=== PATIENT | female | born 1995 | race African-American/Black ===

== ENCOUNTER → 2020-08-05 | Outpatient (CLI) | payer BC, MEDICAID, SELFPAY | END | disposition home or self-care (01) | LOC: LABSPEC 17:11 | PROVIDERS: PCP Pediatrics; Referring Provider Advanced Practice Midwife; Visit Provider Advanced Practice Midwife | DX: Z03.818 Encounter for observation for suspected exposure to other biological agents ruled out (principal) | CPT/HCPCS: 87635; C9803; U0003 ==

== ENCOUNTER 2020-08-06 03:00 | Inpatient (IN) | payer BC, MEDICAID, SELFPAY ==
[2020-08-06] VITALS (48 sets, daily range): BP systolic 109–161; BP diastolic 55–98; PULSE 65–107; RESP 14–16; TEMP 36.6–37.3; O2SAT 98–100; BMI 37.3
[2020-08-06 02:56] LABS: ROM Internal Control Test YES-OK TO RESULT pt. (Internal QC); ROM Patient Test POSITIVE (Negative)
[2020-08-06] MEDS: Lactated Ringers 1,000 ML 50 ML IV (03:10)
[2020-08-06 03:50] LABS: Absolute Neutrophil Count 5.5 X10^3/uL (2.0-7.7); Basophil# 0.01 X10^3/uL; Basophil% 0.1 % (0-1); Eosinophil# 0.02 X10^3/uL; Eosinophils% 0.2 % (0-5); Hematocrit 33.5 % (37-47); Hemoglobin 10.8 g/dL (12.0-15.0); Mean Corp Hgb Conc 32.2 g/dL (32-36); Mean Corpuscular Hgb 28.6 pg (27.0-32.0); Mean Corpuscular Volume 88.9 fL (81-99); Mean Platelet Vol. 13.5 fl (6.2-12.0); Monocyte# 0.88 X10^3/uL; Monocyte% 10.7 % (0-10); NRBC Flagged by Analyzer 0 % (0-5); Neutrophil # 5.45 X10^3/uL (2.7-7.7); Neutrophil % 66.6 % (47-70); POSITIVE MORPHOLOGY YES; Platelet Count 152 K/mm3 (150-450); RBC Distribution Width CV 12.9 % (11.6-14.6); RBC Distribution Width SD 41.9 fl (35.1-43.9); Red Blood Count 3.77 M/mm3 (4.2-5.4); White Blood Count 8.2 K/mm3 (4.4-11.0)
[2020-08-06 04:02] LABS: AST(SGOT) 32 U/L (15-37); Alanine Aminotransfer ALT/SGPT 19 U/L (13-56); Creatinine, Serum 0.56 mg/dL (0.55-1.02); EST Glomerular Filtration Rate 143 mL/min (>60); Est Glom Filt Rate - Afr Amer 173 mL/min (>60); Estimated Creatinine Clearance 128.14 ml/min; Uric Acid 3.9 mg/dL (2.6-6.0)
[2020-08-06 04:05] LABS: Differential Indicated SCAN CRITERIA MET
[2020-08-06 04:06] LABS: Differential Comment SCANNED
[2020-08-06 04:58] LABS: Protein, Urine (Random) 7.4 mg/dL (<11.9); Protein:Creat Ratio 144 mg/g CRE (0-200)
[2020-08-06] MEDS: Lactated Ringers 500 ML 999 ML IV ×2 (05:12→13:22)
[2020-08-06] MEDS: fentaNYL-bupivacaine (epidural) 100 ML BAG EPIDURAL ×2 (06:27→11:23)
[2020-08-06] MEDS: Ondansetron 4 MG/2 ML Vial IV (06:37)
[2020-08-06] MEDS: Mag Hydrox/Al Hydrox/Simeth 30 ML UDC PO (07:27)
[2020-08-06] MEDS: Lactated Ringers 1,000 ML 200 ML IV (07:51)
--- NOTE | 2020-08-06 08:20 | PCM.HP.OB ---
- Problem List (1) 40 weeks gestation of Status: Acute (2) Primiparous Status: Acute (3) Uterine contractions Status: Acute (4) Positive GBS test Status: Acute (5) History of depression Status: Acute History Date of Admission: 08/06/20 Final HERBERT: 08/04/20 Gestational age: 40 Weeks and 2 Days History of this : This is a 25 year-old, G 1, P 0, at 40 weeks gestational age who presented with ctx's after membrane sweep. Allergies latex Allergy (Verified 08/06/20 04:04) Itching Home Medications: Home Medications Polyethylene Glycol 3350 [Miralax] 17 gm PO DAILY 08/06/20 Smoking Status: Former smoker Number of Fetus(es): 1 NST - FHR Rate Baby A FHR Category:: Category II Uterine Activity:: ctx q 4 min History Past Pregnancies: Past Pregnancies Delivery Date Name GA/ Weeks Outcome Route Wt Infant Sex Labor Length Anesthesia Delivery Location Provider FOB Expected Delivery Method: Spontaneous Vaginal Physical Exam Vitals: Vital Signs Temp Pulse BP Pulse Ox 98.1 F 70 128/74 H 100 08/06/20 07:19 08/06/20 07:50 08/06/20 07:50 08/06/20 07:19 General: No apparent distress Abdomen: Gravid Extremities:: No edema Neurological: Neuro grossly intact Estimated gestational size: Appropriate for gestational size Presentation: Cephalic Assessment/Plan All Active Problems 40 weeks gestation of (Acute) Primiparous (Acute) Uterine contractions (Acute) Positive GBS test (Acute) History of depression (Acute) Constipation (Acute) This is a 25 year-old, G 1, P 0, at 40 weeks gestational age who presents at 3-4 cm dilated with ctx's after membrane sweep. - Admit for routine intrapartum care - PCN for GBS positive - ROM plus positive - Epidural prn - EFW expected to be < 4500 g and pelvis adequate. Anticipate vaginal delivery
[2020-08-06] MEDS: DiphenhydrAMINE 25 MG Capsule PO (10:33)
[2020-08-06] MEDS: Oxytocin 30 units/NS 500 ml 30 UNITS/500 ML IV.SOLN 334 UNITS IV (13:31)
--- NOTE | 2020-08-06 13:50 | PCM.OPRPT ---
Problem List (1) 40 weeks gestation of Status: Acute (2) Primiparous Status: Acute (3) Uterine contractions Status: Acute (4) Positive GBS test Status: Acute (5) History of depression Status: Acute Report of Operation Date of Procedure: 08/06/20 Pre-Operative Diagnosis: 40 week gestation, labor at term, GBS positive status, primiparous Post-Operative Diagnosis: As above Surgery/Procedure Performed:: Type of Anesthesia:: Epidural Special Medications: None Specimen's removed: Placenta Drains: Palafox Estimated Blood Loss (mL): 500 Description of Procedure: The patient was complete and pushing. The head of the infant was delivered in occiput anterior position. The anterior shoulder, followed by the posterior shoulder, followed by the body were delivered without any force or delay. A viable female was delivered atraumatically and placed on the maternal abdomen. The cord was clamped and cut after a 60 sec delay by the father of the baby. Cord blood was obtained. Placenta was delivered with fundal massage. The placenta was noted to be normal-appearing and intact with a three-vessel cord. The uterus was explored. Fundus firm and bleeding hemostatic. A rectal exam was performed and a second-degree laceration was noted. The laceration was repaired with 3-0 Vicryl in usual fashion. Instrument, sponge, needle counts were correct. Vaginal sweep was performed. Grafts/Implants Used: None - Complications None - Admit VTE Documentation VTE Present on Admission: No VTE Mechan Device Prophylaxis: None VTE Pharm Prophylaxis ordered?: No Vaginal Delivery Maternal Presentation: Active Labor Amniotic Membrane Rupture Type: Spontaneous Amniotic Fluid Description: Clear Surgery/ Procedure Performed: Spontaneous Vaginal Delivery Type of Anesthesia: Epidural Presentation: Vertex Placental Delivery Description: Expressed Cord Vessel Description: 3 Vessels Cord Entanglement: None Drain: Palafox to straight drain Estimated Blood Loss: 500 A gender: Female (1 minute): 8 (5 minute): 9 Episiotomy Description: None Laceration: 2nd degree Medications given after delivery: IV Pitocin Complications: None
[2020-08-06] MEDS: Ibuprofen 600 MG Tablet PO (18:31)
--- NOTE | 2020-08-06 19:49 | CASEMGMT ---
Social Work Assessment Labor and Delivery Unit Date of Referral: 08/06/2020 Time of Referral: 16:45 Referred By: Dr. Elaine Galvez Date of Intervention: 08/06/2020 Time of Intervention: 19:49 Reason for Referral: Mother of baby (MOB) with history of depression. History obtained from: MOB, Chart, Nursing staff. Household composition: MOB, Father of baby (FOB), Mark Saleem and now this infant, Haley Saleem have private home together. Patient's parent/guardian status: MOB and FOB have been together for 5 years. was not planned but accepted. This is first infant for both MOB and FOB. Medical History: MOB with history prior to delivery of this infant. MOB with spontaneous vaginal delivery at 40 weeks. MOB with history of Depression. born on 08/06/2019 with apgars of 8 and 9 at 1min and 9min. Infant weight of 3160g. MOB with appropriate care visits. MOB plans to breast feed infant. Educational Status: MOB denies any issues with comprehension or understanding. Financial Status: MOB denies any financial concerns. MOB active with [facility]. FOB works full-time and has a ?few days off work.? MOB was working full-time at [employer] but is now PRN. Infant Supplies: MOB reports to have needed supplies including car seat and crib etc. Childcare/Caregiver(s): MOB plans to be primary caregiver for . MOB reports to have family for support of childcare if MOB is working or needs to leave infant. Transportation: Denies issues. Programs/Agencies Involved: MOB plans to utilize [place] and reports to have services already set up. Children Services/Legal Issues: Denies. Mental Health History: MOB with history of depression. MOB denies any current medication management or history of. MOB denies history of counseling services or active counseling services. MOB reports to be able to self-manage depression. This social security assessor able to facilitate conversation with MOB about signs and symptoms of depression and anxiety. MOB denies suicidal thoughts, plans, intents or history of. Substance Use History: MOB denies. Maternal and Drug Screens: None completed. PHQ9: Did not trigger. Family/Social Stressors: Denies any family or social stressors currently. Support Systems: Reports positive support from family. Depression and Anxiety/Shaken Baby/Safe Sleeping: MOB provided with resources for depression, anxiety, shaken baby, safe sleeping, and community resources local to [facility]. MOB and FOB able to responds appropriately to safe sleeping and shaken baby prompts. ASSESSMENT: This social security assessor met with MOB, FOB and in room. Introduced self and social security assessor role. MOB agreeable to speak with this social security assessor. MOB provided verbal permission for this social security assessor to speak openly with FOB present. FOB holding during interaction. FOB gazing at often. MOB reports to have a connection with . MOB smiling often when speaking about . MOB denies any concerns on returning to home. MOB reports that has been going well. Active support and listening provided. PLAN: to discharge to home with MOB and FOB. No other services requested or indicated. Abraham JACOB, SHAKEEL
[2020-08-07 00:07] VITALS: BP 128/78; PULSE 78; RESP 16; TEMP 36.8
[2020-08-07 04:35] VITALS: BP 119/70; PULSE 85; RESP 16; TEMP 36.4
[2020-08-07] MEDS: Ibuprofen 600 MG Tablet PO (08:23)
[2020-08-07] MEDS: Senna/Docusate Sodium 1 Tablet PO (08:23)
[2020-08-07 08:52] VITALS: BP 123/60; PULSE 83; RESP 16; TEMP 36.2
--- NOTE | 2020-08-07 10:06 | PCM.PN.OB ---
Patient Problems: Active and Suspected Problems 40 weeks gestation of (Acute) Primiparous (Acute) Uterine contractions (Acute) Positive GBS test (Acute) History of depression (Acute) Subjective: Patient is doing well. She feels ready to go home today and desires discharge. She is ambulating and voiding without difficulty. She is tolerating a regular diet without nausea or vomiting. Lochia normal. She is breast-feeding without complaints. She denies lightheadedness, dizziness, chest pain, shortness of breath, leg pain. No headaches, vision changes, upper abdominal pain. - Physical Exam Vitals/I&O's: Vital Signs Temp Pulse Resp BP Pulse Ox 97.2 F L 83 16 123/60 H 98 08/07/20 08:52 08/07/20 08:52 08/07/20 08:52 08/07/20 08:52 08/06/20 17:35 Oxygen Delivery Method Room Air Weight: 210 lb 8.663 oz Body Mass Index (BMI) 37.3 Intake and Output for Last 24 Hours 08/05/20 08/06/20 08/07/20 23:59 23:59 23:59 Intake Total 3249.35 / 3249.35 Output Total 1800 / 1800 Balance 1449.35 / 1449.35 General: Alert, No apparent distress HEENT: Atraumatic Abdomen: Soft, Non-Distended Extremities: No edema Skin: No rashes Neurological: Neuro grossly intact Psych/Mental Status: Normal Affect, Appropriate Current Medications Acetaminophen (Acetaminophen 500 Mg Tablet) 1,000 mg PO Q8H PRN PRN PRN Reason: Pain Score 1-10 Bisacodyl (Bisacodyl 10 Mg Suppository) 10 mg RECTAL UD PRN PRN Reason: If no BM Dibucaine (Dibucaine 30 Gm Tube) 1 applic TOPICAL TID PRN PRN; Protocol PRN Reason: Discomfort Hydrocortisone (Hydrocortisone 2.5% Crm) 1 applic TOPICAL TID PRN PRN; Protocol PRN Reason: Discomfort Ibuprofen (Ibuprofen 600 Mg Tablet) 600 mg PO Q6H PRN PRN PRN Reason: Pain Score 1-10 Last Admin: 08/07/20 08:23 Dose: 600 mg Documented by: Methylergonovine Maleate (Methylergonovine 0.2 Mg/Ml Ampul) 0.2 mg IM X1 PRN PRN Reason: Excess bleeding/uterine atony Ondansetron HCl (Ondansetron 4 Mg/2 Ml Vial) 4 mg IV Q4H PRN PRN PRN Reason: Nausea Senna/Docusate Sodium (Senna/Docusate Sodium 1 Tablet) 1 - 2 tablet PO DAILY PRN PRN PRN Reason: Constipation Last Admin: 08/07/20 08:23 Dose: 2 tablet Documented by: Simethicone (Simethicone 80 Mg Tablet) 80 mg PO PCHS PRN PRN Reason: Indigestion/Stomach pain Sodium Chloride (0.9% Saline Lock 10 Ml Syringe) 5 - 15 ml IV UD PRN PRN Reason: SALINE FLUSH Medical Necessity - Tobacco Use Smoking Status: Former smoker Assessment/Plan All Active Problems 40 weeks gestation of (Acute) Primiparous (Acute) Uterine contractions (Acute) Positive GBS test (Acute) History of depression (Acute) Constipation (Acute) day 1 from a vaginal delivery. She is doing well. Vital signs are within normal limits. She desires discharge and is meeting all milestones to go home. Discussed with patient elevated blood pressures on admission, and normal preeclampsia labs. Blood pressures since then have been normal and she has no preeclampsia symptoms. Discussed with her symptoms of preeclampsia, and when to call when she goes home. Reviewed discharge instructions. To follow-up in the office in 1 to 2 weeks.
--- NOTE | 2020-08-07 10:11 | DCINST_ITS ---
Discharge Diet: No Restrictions Discharge Activity: May Shower, May Take a Tub Bath May resume sexual activity in: 6 weeks Ice area for (Minutes): 15 Weight Bearing Status: Weight bearing as tolerated Lifting Restrictions: Nothing heavier than baby for 2 weeks Call your doctor if you observe: Fever of 101 or Higher, Inability to urinate, Inability to have a bowel movement, Using more than one pad per hour, Shortness of breath, Dizziness, Fainting spells, Swelling in the ankles, Chest pain, Increased palpitations (irregular heartbeat), Calf discomfort, Uncontrolled pain, - - Persistent headache, vision changes, persistent upper abdominal pain Cleanse incision/area with: Soap & Water Additional Instructions: If you experience any of the following, contact your healthcare provider. * Bleeding that soaks a pad every hour for 2 hours * Fever 100.4 or higher * Unrelieved incision or abdominal pain * Swelling, redness, discharge or bleeding from your incision or episiotomy site * Your incision begins to separate * Problems urinating (including inability to urinate or burning while urinating). * Visual changes * Severe headache * Flu-like symptoms * Pain or redness in one of both of your breasts * Pain, warmth, tenderness or swelling in your legs, especially the calf area * Frequent nausea and vomiting * Symptoms of depression or anxiety If you experience any of the following, call 911 or go to the nearest Emergency Room. * Chest pain * Problems breathing * Seizure activity * Partial or complete paralysis of a body part, slurred speech, weakness or drooping of the face, or a sudden inability to walk or hold your balance Allergies/Adverse Reactions: Allergies latex Allergy (Verified 08/06/20 04:04) Itching Medications to take at Discharge Polyethylene Glycol 3350 [Miralax] 17 gm PO DAILY 08/06/20 Acetaminophen [Tylenol] 1,000 mg PO Q8H PRN PRN tab 08/07/20 Ibuprofen [Motrin] 600 mg PO Q6H PRN PRN tab 08/07/20 Ibuprofen [Motrin] 600 mg PO Q6H PRN PRN #30 tab 08/07/20 The following prescriptions were given: Ibuprofen [Motrin] 600 mg PO Q6H PRN PRN #30 tab PRN Reason: Pain Score 6-10 Transmission Status: Pending to [facility]/pharmacy #[id number] When: 1-2 weeks for virtual visit. 6 weeks for visit Primary Care Physician: Yumiko Acosta MD [Primary Care Provider] - Test Results: Test results from this visit will be discussed in further detail at your follow- up appointment, if applicable.
[2020-08-07 12:47] VITALS: BP 120/69; PULSE 75; RESP 16; TEMP 36.3
== END 2020-08-07 14:55 | disposition home or self-care (01) | DRG 807 ==
LOC: WPOUT 03:03 → WP 03:15
PROVIDERS: Admitting Provider Obstetrics & Gynecology; PCP Pediatrics; Visit Provider Obstetrics & Gynecology
DX: O99.824 Streptococcus B carrier state complicating childbirth (principal); Z37.0 Single live birth; Z3A.40 40 weeks gestation of pregnancy; Z87.891 Personal history of nicotine dependence; O70.1 Second degree perineal laceration during delivery
CPT/HCPCS: 59025; 59050; 82565; 82570; 84112; 84156; 84450; 84460; 84550; 85025; 86850; 86900; 86901; 99218; J7120; G0378; J2405